=== PATIENT | male | born 1975 | race Caucasian/White ===

== ENCOUNTER → 2017-11-03 | Outpatient (CLI) | payer SELFPAY | LOC: YCFC.O 06:42 | DX: R36.9 Urethral discharge, unspecified (principal) ==

== ENCOUNTER 2020-03-20 10:32 | Emergency (ER) | payer SELFPAY ==
[2020-03-20] MEDS ORDERED: ONDANSETRON INJ 4 MG/2 ML VIAL IV ONE (11:11)
[2020-03-20] MEDS ORDERED: SODIUM CHLORIDE 0.9% (FLUSH) 10 ML SYG IV PRN (11:11)
[2020-03-20] MEDS ORDERED: SODIUM CHLORIDE 0.9% 1000ML 1,000 ML IVS ONE (11:11)
--- NOTE | 2020-03-20 12:08 | ED.PDOC ---
History of Present Illness - General Chief Complaint: General Time Seen by Provider: 03/20/20 11:04 Source: patient, RN notes reviewed, Vital Signs reviewed Exam Limitations: no limitations - History of Present Illness Initial Comments: Patient is a 44-year-old white male who presents with complaints of generalized malaise and fatigue with associated nausea. Patient denies any vomiting or diarrhea. This all started yesterday. Patient denies dizziness, blurry vision, headaches, chest pain, shortness of breath. Timing/Duration: 24 hours Severity: moderate Worsening Factors: eating - Patient with loss of appetite Associated Symptoms: loss of appetite, malaise, nausea/vomiting - Nausea only, weakness Allergies/Adverse Reactions: Allergies NO KNOWN ALLERGY Allergy (Verified 06/01/14 13:23) Home Medications: Ambulatory Orders Ondansetron [Ondansetron Odt] 4 mg PO Q6H #12 tab 03/20/20 Review of Systems - Review of Systems Constitutional: States: see HPI, malaise, weakness. Denies: chills, fever EENTM: States: no symptoms reported. Denies: eye pain, blurred vision, double vision Respiratory: States: no symptoms reported. Denies: cough, short of breath, stridor Cardiology: States: no symptoms reported. Denies: chest pain, palpitations, syncope Gastrointestinal/Abdominal: States: see HPI, nausea. Denies: abdominal pain, diarrhea, vomiting Genitourinary: States: no symptoms reported. Denies: dysuria, frequency Musculoskeletal: States: no symptoms reported. Denies: back pain, joint pain, neck pain Skin: States: no symptoms reported. Denies: change in color, rash Neurological: States: see HPI, anxiety, weakness. Denies: paresthesia, tingling, tremors Endocrine: States: no symptoms reported. Denies: increased hunger, increased thirst, increased urine Hematologic/Lymphatic: States: no symptoms reported. Denies: blood clots, easy bleeding All other Systems: No Change from Baseline Past Medical History (General) - Patient Medical History Hx Seizures: No Hx Stroke: No Hx Dementia: No Hx Asthma: No Hx of COPD: No Hx Cardiac Disorders: No Hx Congestive Heart Failure: No Hx Pacemaker: No Hx Hypertension: No Hx Thyroid Disease: No Hx Diabetes: No Hx Gastroesophageal Reflux: No Hx Renal Disease: No Hx Cancer: No Hx of HIV: No Hx Hepatitis C: No Hx MRSA: No - Vaccination History Hx Tetanus, Diphtheria Vaccination: No Hx Influenza Vaccination: No Hx Pneumococcal Vaccination: No - Social History Hx Tobacco Use: No Hx Chewing Tobacco Use: No Hx Alcohol Use: Yes - beer, weekends. Hx Substance Use: Yes - marajuana Hx Substance Use Treatment: No Hx Depression: Yes Hx Physical Abuse: No Hx Emotional Abuse: No Hx Suspected Abuse: No - Female History Patient : No Family Medical History - Family History Mother Family History: No Known Living Status: Still Living Physical Exam - Physical Exam General Appearance: Alert, Anxious, Well Developed, Well Groomed, Well Hydrated, Well Nourished Eye Exam: bilateral normal Ears, Nose, Throat: hearing grossly normal, normal ENT inspection, normal pharynx Neck: non-tender, full range of motion, supple Respiratory: chest non-tender, lungs clear, normal breath sounds, no respiratory distress, no accessory muscle use Cardiovascular/Chest: normal peripheral pulses, regular rate, rhythm, no edema, no gallop, no JVD, no murmur Peripheral Pulses: radial,right: 2+, radial,left: 2+ Gastrointestinal/Abdominal: normal bowel sounds, non tender, soft Back Exam: normal inspection, no CVA tenderness, no vertebral tenderness Extremity: normal range of motion, non-tender, normal inspection Neurologic: funeral attendant II-XII nml as tested, no motor/sensory deficits, alert, normal mood/affect, oriented x 3 Skin Exam: normal color, warm/dry Lymphatic: no adenopathy Progress - Progress Progress: Differential diagnosis: Viral gastroenteritis, cyclic vomiting syndrome, cannabinoid syndrome, dehydration among others. 03/20/20 13:38 Patient is improved after IV fluids and IV Zofran. Plan on discharge home with follow-up with PCP in 1 to 5 days. Plan on discharge home with a prescription for Zofran. I discussed this plan of care with the patient he voices understanding and agreement. Jose Islas M.D. #[id number] - Results/Orders Results/Orders: 03/20/20 11:11 IV Care:Saline Lock per Protoc QSHIFT Sodium Chloride 0.9% (Flush) [Saline Flush Syringe] 10 ml IV PRN PRN Sodium Chloride 0.9% 1000ML [Ns 1000 ml] 1,000 ml IVS ONCE URINALYSIS Stat 03/20/20 11:15 EKG STAT Laboratory Results - last 24 hr 03/20/20 03/20/20 11:15 11:15 WBC 6.2 RBC 5.62 Hgb 16.3 Hct 47.8 MCV 84.9 MCH 28.9 MCHC 34.1 RDW 13.2 Plt Count 189 MPV 7.0 L Absolute Neuts (auto) 3.40 Absolute Lymphs (auto) 1.80 Absolute Monos (auto) 0.70 Absolute Eos (auto) 0.20 Absolute Basos (auto) 0.10 Neutrophils % 54.6 Lymphocytes % 29.4 Monocytes % 11.3 H Eosinophils % 3.7 Basophils % 1.0 Sodium 139 Potassium 4.5 Chloride 107 Carbon Dioxide 23 Anion Gap 13.5 BUN 16 Creatinine 0.89 BUN/Creatinine Ratio 18.0 Random Glucose 107 H Serum Osmolality 279.2 Calcium 8.9 Total Bilirubin 0.7 Direct Bilirubin 0.1 Indirect Bilirubin 0.6 AST 25 ALT 29 Alkaline Phosphatase 53 Serum Total Protein 6.8 Albumin 3.9 Lipase 29 EKG performed on 20 March 2020 at 1041 hrs.: Normal sinus rhythm at 70 bpm, normal axis deviation, no ST or T wave changes, normal EKG. Departure - Departure Clinical Impression: Cyclical vomiting syndrome, Gastroenteritis, Dehydration Time of Disposition: 13:40 Disposition: Discharge to Home or Self Care Condition: Good Departure Forms: ED Discharge - Pt. Copy, Patient Portal Self Enrollment Instructions: Viral Gastroenteritis, Adult (DC), Dehydration, Adult (DC) Diet: resume usual diet Activity: increase activity as tolerated Referrals: Rosie King NP [Primary Care Provider] - 1-2 Weeks Prescriptions: Ondansetron [Ondansetron Odt] 4 mg PO Q6H #12 tab Home Medications: Ambulatory Orders Ondansetron [Ondansetron Odt] 4 mg PO Q6H #12 tab 03/20/20
[2020-03-20 14:06] VITALS: BP 118/93; TEMP 98.2; O2SAT 98
== END 2020-03-20 13:55 | disposition home or self-care (01) ==
LOC: ER 10:32
DX: R11.15 Cyclical vomiting syndrome unrelated to migraine (principal); K52.9 Noninfective gastroenteritis and colitis, unspecified; E86.0 Dehydration; F32.9 Major depressive disorder, single episode, unspecified
CPT/HCPCS: 80048; 80076; 81001; 82948; 83690; 85025; 93005; A4216; J2405; J7030